=== PATIENT | female | born 1980 | race Caucasian/White ===

== ENCOUNTER 2024-08-12 01:39 | Outpatient (CLI) | payer MEDICAID, SELFPAY ==
--- NOTE | 2024-08-12 06:00 | DI.MRI_ITS ---
Exam(s) MR ANGIO BRAIN WO CLINICAL HISTORY: ? cerebral aneurysm, sig. fam hx,z82.49,worsening migraine with new. TECHNIQUE: 3D [id number]-vr-[id number] study was performed without contrast. COMPARISON: None. FINDINGS: Carotid Arteries: Petrous: Normal. Cavernous: Normal. Cerebral: Normal. Middle Cerebral Arteries: Right: No aneurysm or significant stenosis. Left: No aneurysm or significant stenosis. Anterior Cerebral Arteries: Right: No aneurysm or significant stenosis. Left: No aneurysm or significant stenosis. Posterior cerebral arteries: Right: No aneurysm or significant stenosis Left: No aneurysm or significant stenosis Vertebral Arteries: Right: No aneurysm or significant stenosis. No dissection. Left: No aneurysm or significant stenosis. No dissection.. Basilar Artery: No aneurysm or significant stenosis. Small Vessels: No evidence of beading. No vascular malformations. IMPRESSION: Normal MRA examination of the [place]. DATA REPOSITORY:
--- NOTE | 2024-08-12 06:00 | DI.MRI_ITS ---
Exam(s) MR BRAIN WO EXAM: MR BRAIN WO CLINICAL HISTORY: worsening migraine with new visual disturbance,g43.109 TECHNIQUE: Multiplanar multisequence MRI of the brain was performed. COMPARISON: MR MR ANGIO BRAIN WO from 08/12/2024 FINDINGS: VENTRICLES AND EXTRA AXIAL SPACES: Normal in size and morphology for the patient's age. MIDLINE SHIFT: None. CEREBRAL PARENCHYMA: No focus of restricted diffusion to suggest acute infarct. No space-occupying le vladimir identified. No abnormal high signal lesions in the white matter. BRAINSTEM/CEREBELLUM: Normal. VISUALIZED PARANASAL SINUSES: Clear. MASTOIDS:Clear. Vasculature: Normal flow void. PITUITARY GLAND: Unremarkable. ORBITS: Unremarkable. IMPRESSION: Unremarkable MRI of the brain. DATA REPOSITORY:
== END 2024-08-12 01:59 ==
LOC: DI 01:40
PROVIDERS: PCP Nurse Practitioner Family; Visit Provider Nurse Practitioner Adult Health
DX: Z82.49 Family history of ischemic heart disease and other diseases of the circulatory system (principal); G43.109 Migraine with aura, not intractable, without status migrainosus
CPT/HCPCS: 70544; 70551